=== PATIENT | male | born 1975 | race Caucasian/White ===

== ENCOUNTER 2017-10-09 13:57 | Inpatient (IN) | payer OTHER ==
[~2017-10-09] VITALS: Ht 180.3 cm; Wt 84.0 kg
[2017-10-09 14:14] LABS: BASOPHIL (%) 0.5 % (0-1); BASOPHIL COUNT 0.1 K/uL (0-0.1); EOSINOPHIL (%) 2.6 % (0-5); EOSINOPHIL COUNT 0.4 K/uL (0-0.3); HEMATOCRIT 42.6 % (38.0-50.0); HEMOGLOBIN 14.7 G/DL (12.5-16.6); LYMPHOCYTE (%) 20.4 % (15-42); LYMPHOCYTE COUNT 3.1 K/uL (1.0-2.8); MCH 30.8 PG (29.0-34.0); MCHC 34.5 G/DL (30.0-36.0); MCV 89.1 FL (86-99); MONOCYTE (%) 4.6 % (3-12); MONOCYTE COUNT 0.7 K/uL (0-0.8); NEUTROPHIL (%) 70.9 % (45-76); NEUTROPHIL COUNT 10.6 K/uL (1.8-6.4); PLATELET COUNT 301 K/uL (156-360); RBC DIS.WIDTH-CV 13.6 % (11.8-14.6); RBC DIS.WIDTH-SD 44.4 % (39-53); RED BLOOD COUNT 4.78 M/uL (4.00-5.50); WHITE BLOOD COUNT 14.9 K/uL (4.1-10.2)
[2017-10-09 14:23] LABS: AMYLASE 58 IU/L (1-118); CHLORIDE 107 mEq/L (99-109); POTASSIUM 3.4 mEq/L (3.7-5.4); SODIUM 141 mEq/L (136-147)
[2017-10-09 14:25] LABS: GLUCOSE 138 mg/dL (70-99)
[2017-10-09 14:28] LABS: SERUM ETHYL ALCOHOL < 10 mg/dL
[2017-10-09 14:29] LABS: CREATININE 0.9 mg/dL (0.6-1.3); UREA NITROGEN (BUN) 11 mg/dL (9-23)
[2017-10-09 14:31] LABS: LIPASE 37 U/L (1.0-51.0)
[2017-10-09 14:32] LABS: GFR ESTIMATE (CALCULATED) > 59 mL/min/ (58.99-99999)
[2017-10-09] MEDS ORDERED: SUBOXONE 8 MG-1 EAC2 SL (15:33)
[2017-10-09 18:32] VITALS: BP 144/83
[2017-10-09 19:56] VITALS: BP 141/83
[2017-10-09 23:55] VITALS: BP 146/81
[2017-10-10 05:18] VITALS: BP 163/90
[2017-10-10 07:24] VITALS: BP 140/86
[2017-10-10 11:09] VITALS: BP 145/98
[2017-10-10] MEDS ORDERED: TORADOL10 MG PO (14:56)
[2017-10-10 15:28] VITALS: BP 140/56
== END 2017-10-10 16:22 | disposition home or self-care (01) | DRG 552 ==
LOC: TRA 13:57 → EDOF 15:59 → 3EAST 15:59 → ENRESERV 16:09 → 3EAST 16:54
PROVIDERS: Emergency Medicine
DX: S22.058A Other fracture of T5-T6 vertebra, initial encounter for closed fracture (principal); V85.5XXA Driver of special construction vehicle injured in nontraffic accident, initial encounter; Y99.0 Civilian activity done for income or pay; F11.20 Opioid dependence, uncomplicated; M25.531 Pain in right wrist; F12.90 Cannabis use, unspecified, uncomplicated
CPT/HCPCS: 70450; 71260; 72125; 72129; 72132; 73110; 74177; 80048; 81003; 82150; 83690; 85025; 86850; 86900; 86901; 99281; 99285; G0480; J0574; J1644; J1885; J3010; J7120